=== PATIENT | female | born 1945 | race Caucasian/White ===

== ENCOUNTER 2017-10-21 11:49 | Emergency (ER) | payer BC ==
[2017-10-21 12:02] VITALS: BMI 23.0
--- NOTE | 2017-10-21 12:42 | PDOC ---
History of Present Illness - General Chief Complaint: Injury Stated Complaint: INJURY Time Seen by Provider: 10/21/17 12:00 - History of Present Illness Initial Comments: 10/21/17 12:27 Pt is a 72 y/o F with PMH hypothyroid, Depression (recent Dx. Placed on Lexapro 2 weeks ago), migraine (seeing Dr. Aldair Lowe neurology) who presents to ED after a syncople episode. Pt was going to the public pool to go swimming and prior to getting in the water, she felt dizzy and fell twisting her left ankle and hurting her left knee. She then sat down and does not remember falling again but awoke to find people helping her out of the water. Pt surmises that she must have fainted again, and that's when she hit her head. Pt states bystanders did not mention any shaking while she was unconscious. She did not loose bowel/bladder control. She had some lightheadedness prior to fainting, but no aura. She states she was not confused upon regaining consciousness. Pt complains of pain of the right forehead, right posterior chest, both knees, and left ankle. Denies current dizziness, chest pain, sob, nausea, vomiting, diarrhea, fever, chills, recent illness. Pt currently stable, afebrile, in NAD. Past History - Past Medical History Allergies/Adverse Reactions: Allergies Allergy/AdvReac Type Severity Reaction Status Date / Time No Known Allergies Allergy Verified 10/21/17 11:56 COPD: No Psychiatric Problems: Yes (depression/anxiety) Seizures: Yes Other medical history: migraines - Suicide/Smoking/Psychosocial Hx Smoking History: Never smoked Have you smoked in the past 12 months: No Information on smoking cessation initiated: No Hx Alcohol Use: No Drug/Substance Use Hx: No Substance Use Type: None Review of Systems - Review of Systems Able to Perform ROS?: Yes Is the patient limited Kyrgyz proficient: No Constitutional: Yes: Symptoms Reported. No: Chills, Diaphoresis, Fever, Night Sweats HEENTM: Yes: Symptoms Reported. No: Blurred Vision, Double Vision Respiratory: Yes: Symptoms reported. No: Cough, Orthopnea, Shortness of Breath Cardiac (ROS): Yes: Symptoms Reported, Lightheadedness. No: Chest Pain, Palpitations, Syncope ABD/GI: Yes: Symptoms Reported. No: Diarrhea, Nausea, Poor Appetite, Poor Fluid Intake, Vomiting, Abdominal cramping : Yes: Symptoms Reported. No: Burning, Dysuria, Discharge, Frequency, Flank Pain, Hematuria, Urgency Musculoskeletal: Yes: Symptoms Reported, Back Pain Integumentary: Yes: Symptoms Reported, Lesions (knees) *Physical Exam - Vital Signs Last Vital Signs Temp Pulse Resp BP Pulse Ox 98 F 73 20 139/66 100 10/21/17 11:57 10/21/17 11:57 10/21/17 11:57 10/21/17 11:57 10/21/17 11:57 - Physical Exam General Appearance: Yes: Nourished, Appropriately Dressed. No: Apparent Distress, Disheveled HEENT: positive: EOMI, JENNIFER, Normal ENT Inspection, Normal Voice, Other (R forehead trauma with 5cm hematoma ). negative: Pale Conjunctivae Neck: positive: Supple. negative: Tender Respiratory/Chest: positive: Chest Tender (R posterior chest MILDLY tender to palpation), Lungs Clear, Normal Breath Sounds. negative: Respiratory Distress, Accessory Muscle Use, Labored Respiration, Paradoxal Breathing, Wheezing, Hyperresonant Cardiovascular: positive: Regular Rhythm, Regular Rate, S1, S2. negative: Edema , JVD Vascular Pulses: Dorsalis-Pedis (R): 2+, Doralis-Pedis (L): 2+ Gastrointestinal/Abdominal: positive: Normal Bowel Sounds, Flat, Soft. negative : Tender, Organomegaly, Pulsatile Mass Extremity: positive: Normal Capillary Refill, Pelvis Stable, Swelling (l lateral ankle). negative: Normal Inspection (L ankle lateral swelling and pain) , Normal Range of Motion (L ankle limited by pain), Calf Tenderness, Erythema Integumentary: positive: Normal Color, Warm. negative: Cyanotic, Pale Neurologic: positive: fire engineer II-XII NML intact, Fully Oriented, Alert, Normal Mood/ Affect, Normal Response, Motor Strength 5/5 ED Treatment Course - LABORATORY CBC & Chemistry Diagram: 10/21/17 13:12 10/21/17 13:12 Medical Decision Making - Medical Decision Making 10/21/17 12:57 Pt is a pleasant 72 y/o F w/ PMH hypothyroidism, depression, and migraine who presents to ED after a syncople episode. +LOC. Pt has signs of trauma of head, b /l knees, L ankle. Plan -CBC, CMP, Mg, Tn, EKG, UA -CT head, R rib series, R knee XR, L ankle XR 10/21/17 13:09 Pt states she had echo and carotid studies done [address] Maikel Sanchez. Will attempt to get records from office. 10/21/17 14:25 UA, CMP unremarkable. cbc, tn, ck pending. *DC/Admit/Observation/Transfer Diagnosis at time of Disposition: Syncope Qualifiers: Syncope type: vasovagal syncope Qualified Code(s): R55 - Syncope and collapse - Discharge Dispostion Disposition: HOME Condition at time of disposition: Stable Admit: No - Referrals Referrals: Edgar Sanchez MD [Primary Care Provider] - - Patient Instructions Printed Discharge Instructions: DI for Syncope in Adults (Fainting) Additional Instructions: Please make sure you take all of your prescription pain medications as directed. You can take aleve for your ankle. Please follow the recommended dosing. Please make sure you follow up with your primary doctor and your plumbing foreman ( Dr. Sanchez) within 1 week. If you develop new symptoms or if you symptoms recur or get worse, please return to the emergency department immediately. - Post Discharge Activity
[2017-10-21] MEDS ORDERED: morphine CARPU-JECT 2 MG/1 ML DISP.SYRIN IVPUSH ONE (12:44)
[2017-10-21] MEDS ORDERED: morphine CARPU-JECT 10 MG/1 ML DISP.SYRIN ONE (13:09)
--- NOTE | 2017-10-21 13:18 | PDOC ---
Attending Attestation - Resident Resident Name: Tavares Shi - ED Attending Attestation I have performed the following: I have examined & evaluated the patient, The case was reviewed & discussed with the resident, I agree w/resident's findings & plan, Exceptions are as noted - HPI HPI: 10/21/17 13:12 72y/o F h/o low thyroid, low BP complicated by syncope in the past, p/w syncope at the local pool today. Pt had prodrome of light-headedness followed by LOC upon being helped to her feet. no cp/palp/sob. + fall with head injury, L ankle injury. Now feels well, no complaints and wants to go home. - Physicial Exam PE: 10/21/17 13:15 VSS R forehead hematoma, nasal bridge abrasion no epistaxis or oral injury s1s2 rrr, no m ctab neuro intact b/l knee abrasion, some R knee discomfort with flexion (s/p TKR). posterior R rib bruise and ttp, no crepitus, symmetric and CTAB L ankle distal fibula ttp with sts, nvi neuro intact - Medical Decision Making 10/21/17 13:18 Patient seen and evaluated with the resident. I agree with the overall evaluation, assessment, and management with the following summary of visit: 72y/o F with syncope and fall. + prodrome similar to past light-headedness and syncope. Pt actually had complete workup with Dr. Sanchez, her staff electrical engineer, about 3 weeks ago with normal echo and carotid doppler. regarding syncope: check labs, ekg, ua. Pt should be admitted for overnight tele but she is adamantly refusing. If echo/doppler wnl (will get records), consider expedited outpt workup if she continues to refuse. regarding injury: ct head, R knee, L ankle, R rib series 10/21/17 16:08 workup unremarkable, no fracture. Cards report reveals essentially normal Echo (no significant ) and carotids. Very happy she can go home, will accompany her. Understands return criteria. Heart Score/ECG Review #1 ECG reviewed & interpreted by me at: 13:51 General ECG Interpretation: Sinus Rhythm, Normal Rate (66), Normal Intervals ( qtc 402), No acute ischemic changes
[2017-10-21 13:37] LABS: BASO % 0.4 % (0-2.0); EOS % 0.2 % (0-4.5); HEMATOCRIT 42.4 % (32.4-45.2); HEMOGLOBIN 13.8 GM/dL (10.7-15.3); LYMPH % 8.5 % (8-40); MCH 29.9 pg (25.7-33.7); MCHC 32.5 g/dl (32.0-36.0); MEAN CELL VOLUME 92.1 fl (80-96); NEUT % 87.9 % (42.8-82.8); PLATELET COUNT 221 K/MM3 (134-434); RBC 4.61 M/mm3 (3.60-5.2); WHITE BLOOD COUNT 11.4 K/mm3 (4.0-10.0)
[2017-10-21 13:54] LABS: URINE APPEARANCE CLEAR; URINE BILIRUBIN NEGATIVE (NEGATIVE); URINE BLOOD NEGATIVE (NEGATIVE); URINE COLOR LTYELLOW; URINE GLUCOSE (UA) NEGATIVE (NEGATIVE); URINE KETONE TRACE (NEGATIVE); URINE NITRITE NEGATIVE (NEGATIVE); URINE PROTEIN NEGATIVE (NEGATIVE); URINE UROBILINOGEN NEGATIVE mg/dL (0.2-1.0)
[2017-10-21 14:03] LABS: ALBUMIN 3.8 g/dl (3.4-5.0); ANION GAP 10 (8-16); BLOOD UREA NITROGEN 22 mg/dL (7-18); CALCIUM 9.1 mg/dL (8.5-10.1); CHLORIDE 103 mmol/L (98-107); CO2 27 mmol/L (21-32); CREATININE 0.5 mg/dL (0.55-1.02); GLUCOSE,RANDOM 120 mg/dL (74-106); SODIUM 140 mmol/L (136-145)
[2017-10-21 14:07] LABS: ALK PHOS 75 U/L (45-117); BILIRUBIN,TOTAL 0.2 mg/dL (0.2-1.0); SGPT/ALT 25 U/L (12-78); TOT PROT 6.6 g/dl (6.4-8.2)
[2017-10-21 14:13] LABS: URINE LEUK ESTERASE 1+ (NEGATIVE)
[2017-10-21 14:14] LABS: POTASSIUM 4.4 mmol/L (3.5-5.1)
[2017-10-21 14:15] LABS: SGOT/AST 22 U/L (15-37)
[2017-10-21 14:17] LABS: EPI CELLS RARE /HPF (FEW); URINE HYALINE CAST 1 /lpf; URINE MUCUS RARE
[2017-10-21] MEDS ORDERED: ACETAMINOPHEN 325 MG TABLET (FP) PO ONE (15:15)
[2017-10-21] MEDS ORDERED: ACETAMINOPHEN INJECTION 100 ML IVPB ONE (15:16)
[2017-10-21] MEDS ORDERED: ACETAMINOPHEN 1000 MG/100 ML VIAL (NON FORMULARY) IVPB ONE (15:19)
[2017-10-21 16:22] VITALS: BP 122/64; PULSE 75; TEMP 98.1
[2017-10-21 17:50] LABS: MAGNESIUM 2.1 mg/dL (1.8-2.4)
--- NOTE | 2017-10-22 09:30 | EKG ---
Test Reason : Blood Pressure : / mmHG Vent. Rate : 066 BPM Atrial Rate : 066 BPM P-R Int : 152 ms QRS Dur : 082 ms QT Int : 384 ms P-R-T Axes : 000 056 062 degrees QTc Int : 402 ms NORMAL SINUS RHYTHM NORMAL ECG NO PREVIOUS ECGS AVAILABLE Confirmed by MD Blake, Estrada ([id number]) on 10/22/2017 9:30:17 AM Referred By: Confirmed By:Estrada Lozano MD
== END 2017-10-21 16:54 | disposition home or self-care (01) ==
LOC: JER 11:49
PROC: 3E033NZ Introduction of Analgesics, Hypnotics, Sedatives into Peripheral Vein, Percutaneous Approach (ICD-10-PCS; principal; 2017-10-21)
DX: R55 Syncope and collapse (principal); F32.9 Major depressive disorder, single episode, unspecified; E03.9 Hypothyroidism, unspecified
CPT/HCPCS: 36415; 70450-TC; 71101-TC-RT; 73560-TC-RT; 73610-TC-LT; 80053; 81003; 81015; 82550; 83735; 84484; 85025; 93005; 93010; 96374; 96375; 99283-25